=== PATIENT | male | born 1950 | race Asian ===

== ENCOUNTER → 2018-04-20 08:11 | Outpatient (REF) | payer MEDICARE, SELFPAY ==
[2018-04-20 14:28] LABS: ALT 46 U/L (12-78); AST 22 U/L (15-37); Albumin 3.9 g/dL (3.4-5.0); Alkaline Phosphatase 81 U/L (46-116); BUN 14 mg/dL (7-18); Bilirubin, Total 0.5 mg/dL (0.2-1.0); CREATININE 1.11 mg/dL (0.70-1.30); Calcium 9.1 mg/dL (8.5-10.1); Chloride 106 mmol/L (98-107); Cholesterol 158 mg/dL (50-200); Glucose 112 mg/dL (70-100); HDL Cholesterol 32 mg/dL (40-60); LDL CHOLESTEROL 107 mg/dL (<100); Sodium 141 mmol/L (136-145); Total Protein 7.4 g/dL (6.4-8.2); Triglyceride 157 mg/dL (30-150)
== END ==
LOC: NCHCN 08:11
PROVIDERS: PCP Nurse Practitioner Family; Visit Provider Nurse Practitioner Family
DX: I10 Essential (primary) hypertension (principal)
CPT/HCPCS: 80053; 80061; 83721

== ENCOUNTER 2018-09-24 09:48 | Outpatient (REF) | payer MEDICARE, SELFPAY ==
[2018-09-24 13:52] LABS: HCT 50.9 % (40.0-50.0); HGB 17.1 g/dL (13.5-17.5); Mean Corp. HGB Concentration 33.6 g/dL (32.0-36.0); Mean Corpuscular Hemoglobin 31.3 pg (27.0-33.0); Mean Corpuscular Volume 93.1 fL (80-95); Mean Platelet Volume 11.3 fL (8.0-11.0); Platelet Count 228 x1000/uL (130-400); RBC 5.47 m/cumm (4.50-6.00); RBC Distribution Width 14.6 % (11.8-14.1); White Blood Cell Count 6.47 k/cumm (4.4-10.8)
[2018-09-24 14:28] LABS: ALT 47 U/L (12-78); AST 26 U/L (15-37); Albumin 3.8 g/dL (3.4-5.0); Alkaline Phosphatase 73 U/L (46-116); Anion Gap 10.8 mmol/L (3-11); BUN 24 mg/dL (7-18); Bilirubin, Total 0.6 mg/dL (0.2-1.0); CO2 29.2 mmol/L (21.0-32.0); CREATININE 1.11 mg/dL (0.70-1.30); Calcium 9.2 mg/dL (8.5-10.1); Chloride 103 mmol/L (98-107); Cholesterol 180 mg/dL (50-200); Glucose 107 mg/dL (70-100); HDL Cholesterol 35 mg/dL (40-60); LDL CHOLESTEROL 123 mg/dL (<100); Potassium 4.2 mmol/L (3.5-5.1); Sodium 143 mmol/L (136-145); Total Protein 7.5 g/dL (6.4-8.2); Triglyceride 125 mg/dL (30-150)
== END 2018-09-24 10:08 ==
LOC: NCHCN 09:48
PROVIDERS: PCP Nurse Practitioner Family; Visit Provider Nurse Practitioner Family
DX: I10 Essential (primary) hypertension (principal); E78.5 Hyperlipidemia, unspecified; Z12.5 Encounter for screening for malignant neoplasm of prostate
CPT/HCPCS: 80053; 80061; 83721; 84153; 85027

== ENCOUNTER 2019-01-20 11:40 | Outpatient (REF) | payer MEDICARE, SELFPAY ==
[2019-01-20 12:52] LABS: Anion Gap 8.3 mmol/L (3-11); BUN 17 mg/dL (7-18); CO2 26.7 mmol/L (21.0-32.0); CREATININE 1.08 mg/dL (0.70-1.30); Chloride 103 mmol/L (98-107); Glucose 168 mg/dL (70-100); Potassium 3.8 mmol/L (3.5-5.1); Sodium 138 mmol/L (136-145)
== END 2019-01-20 12:00 ==
LOC: NCHCN 11:40
PROVIDERS: PCP Nurse Practitioner Family; Visit Provider Nurse Practitioner Family
DX: I10 Essential (primary) hypertension (principal)
CPT/HCPCS: 80048

== ENCOUNTER 2019-02-03 10:12 | Outpatient (REF) | payer MEDICARE, SELFPAY ==
[2019-02-03 19:00] LABS: Anion Gap 8.9 mmol/L (3-11); BUN 19 mg/dL (7-18); CO2 28.1 mmol/L (21.0-32.0); CREATININE 1.07 mg/dL (0.70-1.30); Calcium 9.2 mg/dL (8.5-10.1); Chloride 99 mmol/L (98-107); Glucose 185 mg/dL (70-100); Potassium 3.8 mmol/L (3.5-5.1); Sodium 136 mmol/L (136-145)
== END 2019-02-03 10:32 ==
LOC: NCHCN 10:12
PROVIDERS: PCP Nurse Practitioner Family; Visit Provider Nurse Practitioner Family
DX: E78.5 Hyperlipidemia, unspecified (principal); I10 Essential (primary) hypertension
CPT/HCPCS: 80048

== ENCOUNTER → 2019-03-07 13:38 | Outpatient (BNVA) | payer MEDICARE, SELFPAY | PROVIDERS: PCP Nurse Practitioner Family; Referring Provider Nurse Practitioner Family; Visit Provider Physical Therapy Assistant | DX: Z12.11 Encounter for screening for malignant neoplasm of colon (principal); J44.9 Chronic obstructive pulmonary disease, unspecified; I10 Essential (primary) hypertension ==

== ENCOUNTER 2019-04-05 00:44 | Emergency (ER) | payer MEDICARE, SELFPAY ==
[2019-04-05] VITALS (28 sets, daily range): BP systolic 88–118; BP diastolic 55–69; PULSE 62–79; RESP 7–17; TEMP 36.6; O2SAT 95–99
--- NOTE | 2019-04-05 00:57 | DI.CT_ITS ---
SYMPTOM/DIAGNOSIS: SYNCOPE CRANIAL CT: 04/[address] was performed. There is predominant opacification of maxillary ethmoid and right sphenoid sinuses. Mastoid air cells are clear. The orbital and temporal bone structures appear intact. Some calcification noted in internal carotid and middle cerebral arteries bilaterally. Ventricular system is normal in appearance. No evidence of acute intracranial hemorrhage, mass effect or midline shift. CONCLUSION: No evidence of acute intracranial process. Findings consistent with chronic sandra sinusitis.
--- NOTE | 2019-04-05 00:57 | DI.RAD_ITS ---
SYMPTOM/DIAGNOSIS: SYNCOPE PA AND LATERAL CHEST: 04/05 The heart is not enlarged. The lungs are predominantly clear with question minimal calcific scarring in left upper lobe which may represent healed granulomatous disease. No pleural effusion seen. CONCLUSION: No evidence of acute process.
--- NOTE | 2019-04-05 00:59 | ED.GENADUL_ITS ---
Discharge Plan Discharge Details Chief Complaint: Dizzy/Sync Primary Care Provider: Jennifer Benson ED Provider: Arnoldo Gaines Home Meds and New Rx's Prescriptions: No Action polyethylene glycol 3350 17 gram/dose powder 238 g PO ONCE Qty: 238 RF: 0 bisacodyl [Dulcolax (bisacodyl)] 5 mg tablet,delayed release (DR/EC) 5 mg PO ONCE Qty: 4 RF: 0 hydrochlorothiazide 50 mg tablet 50 mg PO DAILY RF: 0 cyclobenzaprine 10 mg tablet 10 mg PO HS RF: 0 triamcinolone acetonide 0.1 % cream 1 applic TP BID RF: 0 simvastatin [Zocor] 20 mg tablet 20 mg PO QHS RF: 0 lisinopril 20 mg tablet 20 mg PO DAILY RF: 0 aspirin [Aspir-81] 81 mg Tablet,Delayed Release (Dr/Ec) 81 mg PO DAILY RF: 0 Medical Decision Making 68-year-old male who completed bowel prep earlier today for colonoscopy tomorrow with resultant 6-7 large, watery loose stools. Then be felt weak and lightheaded in the bathroom, had a syncopal event without seizure or chest pain. Arrives to the blood pressure 88/64, dehydrated in appearance, but otherwise well-appearing. He is in a normal sinus rhythm on EKG. Likely hypovolemia, differential diagnosis would include electrolyte abnormality, must exclude cardiogenic syncope. Patient IV access established, patient given fluid bolus. Referred for diagnostic studies. Patient appears hypovolemic and hemoconcentrated with a hemoglobin 18, hematocrit 53, creatinine 1.5. His troponin is unremarkable, the remainder of chemistries reassuring. CT scan of the head and chest x-ray are unremarkable. He is improved following fluid resuscitation with correction of blood pressure. Consistent with hypovolemic near syncope secondary to his bowel prep. He is stable and improved. Appropriate discharged home and may continue with plan colonoscopy as a feel there are no contraindications at this time. ECG Data Attestation: I personally reviewed and interpreted this ECG (s) as follows: Interpretation: Normal sinus rhythm with a rate of 65, the QRS is narrow, no ST segment change HPI General Mode of arrival: ambulatory . Date/Time Provider Initiated Documentation: 04/05/19 00:49 . Limitations to Documentation: no limitations . Information obtained by: patient . History of Present Illness 68 year old M pr esents to the emergency department with the chief complaint of Syncope after bowel prep, described as moderate, Quality is described as constant, Patient reports no radiation. and it has been now resolved. No relieving factors improve symptom(s), No exacerbating factors reported . Patient notes no other symptoms.; denies chest pain. Patient did receive the following treatments prior to arrival, none Related Data Home Medications Medication Instructions Recorded Confirmed cyclobenzaprine 10 mg tablet 10 mg PO HS 02/22/19 03/07/19 hydrochlorothiazide 50 mg tablet 50 mg PO DAILY 02/22/19 04/04/19 lisinopril 20 mg tablet 20 mg PO DAILY 02/22/19 04/04/19 simvastatin 20 mg tablet 20 mg PO QHS 02/22/19 04/04/19 triamcinolone acetonide 0.1 % 1 applic TP BID 02/22/19 03/07/19 topical cream bisacodyl 5 mg tablet,delayed 5 mg PO ONCE #4 tab 03/07/19 03/07/19 release polyethylene glycol 3350 17 238 g PO ONCE #238 gm 03/07/19 03/07/19 gram/dose oral powder aspirin [Aspir-81] 81 mg PO DAILY 04/01/19 04/04/19 Previous Rx's Medication Instructions Recorded bisacodyl 5 mg tablet,delayed 5 mg PO ONCE #4 tab 03/07/19 release polyethylene glycol 3350 17 238 g PO ONCE #238 gm 03/07/19 gram/dose oral powder Allergies Allergy/AdvReac Type Severity Reaction Status Date / Time No Known Allergies Allergy Verified 04/04/19 12:14 General Stated Complaint: Dizzy/Sync RAÚL: 2 Review of Systems Review of Systems No chest pain. 6-7 loose watery stools at home. [place] weakness and lightheadedness. 6 systems reviewed and otherwise negative [facility] Medical History Abnormal EKG (Chronic) Atopic dermatitis (Chronic) COPD (chronic obstructive pulmonary disease) (Chronic) Deviated septum (Chronic) Hyperlipidemia (Chronic) Hypertension (Chronic) Microscopic hematuria (Chronic) Tobacco abuse (Chronic) Warthin's tumor (Chronic) Social History Smoking/Tobacco Use Status: Current every day Tobacco Type: cigarettes Drug use: Never Do you feel safe at home: Yes Do you feel safe in your relationship?: Yes Exam Narrative Exam Narrative: GEN: awake, alert, oriented 3. Pleasant, well groomed, interactive. HEAD: Normocephalic, atraumatic ENT: Mucous membranes dry, oropharynx unremarkable, External ear exam unremarkable EYES: PERRL, EOMI NECK: Full ROM, no NITZA, no menigismus CHEST/RESP: Nontender, clear to auscultation bilateral, no wheeze/rhonchi/rales CARDIOVASCULAR: RRR, no murmur, rub jose. 2+ Rad pulse bilateral ABDOMEN: Soft, nontender, no mass. +Bowel sounds EXT: Full ROM, no edema, no rash Neuro: Grossly normal neurologic exam, conversant, interactive. Psych: Speech fluent, thoughts congruent, affect normal Course Vital Signs Temperature 36.6 C 04/05/19 00:53 Pulse 64 04/05/19 00:53 Respiratory Rate 12 04/05/19 00:53 Blood Pressure 88/64 L 04/05/19 00:53 Pulse Oximetry 97 04/05/19 00:53 Temperature 36.6 C 04/05/19 00:53 Temperature Source Skin 04/05/19 00:53 Pulse 64 04/05/19 00:53 Respiratory Rate 12 04/05/19 00:53 Blood Pressure 88/64 L 04/05/19 00:53 Blood Pressure Position Sitting 04/05/19 00:53 Pulse Oximetry 97 04/05/19 00:53
[2019-04-05 01:12] LABS: Abs Immature Grans 0.02 k/cumm (0.0-0.09); Absolute Basophil Count 0.04 k/cumm (0.0-0.2); Absolute Eosinophil Count 0.46 k/cumm (0.0-0.7); Absolute Monocyte Count 0.73 k/cumm (0.11-0.7); Absolute Neutrophil Count 5.67 k/cumm (1.2-6.7); Basophils % 0.4; Eosinophils % 4.2; HCT 53.5 % (40.0-50.0); HGB 18.3 g/dL (13.5-17.5); Immature Grans % 0.2; Lymphocytes % 36.6; Mean Corp. HGB Concentration 34.2 g/dL (32.0-36.0); Mean Corpuscular Hemoglobin 31.2 pg (27.0-33.0); Mean Corpuscular Volume 91.1 fL (80-95); Mean Platelet Volume 9.7 fL (8.0-11.0); Monocytes % 6.7; Neutrophils % 51.9; Platelet Count 226 x1000/uL (130-400); RBC 5.87 m/cumm (4.50-6.00); RBC Distribution Width 14.6 % (11.8-14.1); White Blood Cell Count 10.92 k/cumm (4.4-10.8)
[2019-04-05] MEDS: Normal Saline 1,000 ML 1000 ML IV ×2 (01:21→01:22)
[2019-04-05 01:29] LABS: ALT 44 U/L (12-78); AST 16 U/L (15-37); Albumin 4.3 g/dL (3.4-5.0); Alkaline Phosphatase 73 U/L (46-116); Anion Gap 9.3 mmol/L (3-11); BUN 14 mg/dL (7-18); Bilirubin, Total 0.5 mg/dL (0.2-1.0); CO2 28.7 mmol/L (21.0-32.0); CREATININE 1.51 mg/dL (0.70-1.30); Calcium 9.4 mg/dL (8.5-10.1); Chloride 102 mmol/L (98-107); Estimated GFR 46.47 (mL/min/1.73m2); Glucose 112 mg/dL (70-100); Magnesium 1.9 mg/dL (1.8-2.4); Potassium 3.8 mmol/L (3.5-5.1); Sodium 140 mmol/L (136-145); Total Protein 8.7 g/dL (6.4-8.2)
[2019-04-05 01:30] LABS: Troponin I < 0.05 ng/mL (0.00-0.06)
--- NOTE | 2019-04-05 01:57 | DI.VRAD_ITS ---
EXAM: XR Chest, 2 Views EXAM DATE/TIME: 04/05/2019 1:42 AM CLINICAL HISTORY: 68 years old, male; Other: Syncope TECHNIQUE: Imaging protocol: XR of the chest, 2 views. COMPARISON: No relevant prior studies available. FINDINGS: Lungs: Unremarkable. No consolidation. Pleural space: Unremarkable. No pleural effusion. No pneumothorax. Heart/Mediastinum: Aortic atherosclerosis. No cardiomegaly. Bones/joints: Chronic osseous changes. IMPRESSION: No acute cardiopulmonary findings. Dictated and Authenticated by: Ba Gardner MD. Ordering:NAT Mclaughlin MD
--- NOTE | 2019-04-05 02:02 | DI.VRAD_ITS ---
EXAM: CT Head Without Contrast EXAM DATE/TIME: 04/05/2019 1:41 AM CLINICAL HISTORY: 68 years old, male; Syncope and collapse TECHNIQUE: Imaging protocol: Computed tomography images of the head without contrast. Coronal and sagittal reformatted images were created and reviewed. COMPARISON: No relevant prior studies available. FINDINGS: Brain: Normal. No hemorrhage. Unremarkable white matter. No mass effect. Ventricles: Normal. No ventriculomegaly. Bones/joints: Unremarkable. No acute fracture. Sinuses: Diffuse mucosal thickening and sinus opacification of paranasal sinuses Mastoid air cells: Visualized mastoid air cells are well aerated. No mastoid effusion. Soft tissues: Unremarkable. IMPRESSION: 1. No acute intracranial findings. 2. Sinus inflammatory disease. Dictated and Authenticated by: Ba Gardner MD. Ordering:NAT Mclaughlin MD
== END 2019-04-05 03:21 | disposition home or self-care (01) ==
LOC: ER 03:16
PROVIDERS: Emergency Provider Emergency Medicine; PCP Nurse Practitioner Family
DX: E86.1 Hypovolemia (principal); I95.9 Hypotension, unspecified; R55 Syncope and collapse; T47.2X5A Adverse effect of stimulant laxatives, initial encounter; J44.9 Chronic obstructive pulmonary disease, unspecified; F17.210 Nicotine dependence, cigarettes, uncomplicated; I10 Essential (primary) hypertension
CPT/HCPCS: 45385; 45380; 36415; 80053; 88305; 93005; 96360; 99285; 70450; 71046; 83735; 84484; 85025; 93010; 99284

== ENCOUNTER 2019-04-05 08:53 | Day surgery (SDC) | payer MEDICARE, SELFPAY ==
--- NOTE | 2019-04-05 06:52 | W.COLOREPORT ---
Date of service: 04/05/19 Time of Service: 12:46 Colonoscopy Report Date of procedure: 04/05/19 Pre-op diagnosis general: Colon Cancer Screening Post-op diagnosis procedure note: other (Multiple Colorectal polyps) Procedure: Colonoscopy with polypectomy Surgeon: Louann Dow Anesthesia proc note operative: other (General/ ASA 2/Divina Ramirez CRNA) Estimated blood loss (mL): 5 Pathology: other (15 polyps) Complications: None Disposition: same day Indications: Mr. Mendoza is a pleasant 68 year old male seen in the office for a colonoscopy. His last Colonoscopy was in 2007 and was unremarkable. Risks, benefits and complications have been reviewed. Complications include but are not limited to bleeding, pain, perforation, missed small lesion/polyp, sore throat, aspiration and adverse reaction to the medications. Questions were entertained and answered to their satisfaction and they wished to proceed. No guarantees were given or implied. Prep: Miralax/Dulcolax Procedure Start Time: 12:46 Procedure End Time: 13:39 Retraction Time: 46 minutes Findings: 15 polyps, most of them sessile ranging from <1 cm to 1 cm 3 pedunculated polyps in the sigmoid colon at 20 cm Procedure Description: After informed consent was obtained the patient was taken to the procedure room and placed in a left decubitous position. Monitors were applied and a time out was done. The patients name, date of , procedure, allergies to medications and metal in their body was reviewed. The patient was then sedated. Once sedated and comfortable a rectal exam was done. External exam was normal. Internal exam revealed a normal sphincter tone and no palpable masses. The prostate is smooth. The scope was then introduced and retro-flexed. No internal hemorrhoids were identified. The scope was then advanced to the cecum without difficulty. The TI and appendiceal orifice were identified. The prep was adequate. The scope was then slowly retracted over 46 minutes minutes back into the rectum. Polyps were removed with cold forceps in the transverse colon, descending colon x2, and sigmoid colon x 9. Polyps were removed with a hot snare in the sigmoid colon at 20 cm x 3. The scope was removed and the patient was woken up and taken back to Same day surgery in stable condition. The patient tolerated the procedure well and there were no immediate complications. Follow up: The patient should follow up in 1-2 years unless they develop changes in bowel habits or other new gastrointestinal complaints.
--- NOTE | 2019-04-05 06:54 | W.PM.DSUDISC ---
Discharge Plan Disposition Patient Disposition: HOME Condition: Good Discharge Details Reason For Visit: Colon Cancer Screening Attending Provider: Louann Dow Primary Care Provider: Simone Harley Home Meds and New Rx's Prescriptions: Continued hydrochlorothiazide 50 mg tablet 50 mg PO DAILY RF: 0 cyclobenzaprine 10 mg tablet 10 mg PO HS RF: 0 triamcinolone acetonide 0.1 % cream 1 applic TP BID RF: 0 simvastatin [Zocor] 20 mg tablet 20 mg PO QHS RF: 0 lisinopril 20 mg tablet 20 mg PO DAILY RF: 0 aspirin [Aspir-81] 81 mg Tablet,Delayed Release (Dr/Ec) 81 mg PO DAILY RF: 0 Discontinued polyethylene glycol 3350 17 gram/dose powder 238 g PO ONCE Qty: 238 RF: 0 bisacodyl [Dulcolax (bisacodyl)] 5 mg tablet,delayed release (DR/EC) 5 mg PO ONCE Qty: 4 RF: 0 Discharge Instructions Instructions: Colonoscopy (GEN), Colorectal Polyps (GEN) Additional Instructions: Findings: 15 polyps Follow up: 1-2 years Please call if you develop: fevers >101.5 Nausea or Vomiting Abdominal pain that is not transient DAY SURGERY UNIT POST COLONOSCOPY INSTRUCTIONS 1. Because there will be medication in your system for the next 24 hours, you may feel a little sleepy. Your coordination will be affected. Therefore: a. Do not drive or operate dangerous equipment for 24 hours. b. Do not drink alcohol beverages for 24 hours (not even beer). c. Plan to go home and rest for the day. 2. Generally there are no restrictions on your activity after a day or so has gone by, but you may feel a bit fatigued for a few days. 3 After you arrive home you may have a light meal and return to a normal diet as you can tolerate it without feeling sick to your stomach. 4. After surgery, you may feel pain or discomfort. This should be only transient, but if it persists please contact your doctor. 5. If there are any questions regarding the findings of your procedure, please feel free to contact your doctor. 6. If you are unable to contact your doctor with a problem, contact the hospital at [phone]. 7. Continue all your regular medications unless directed otherwise. I understand the above instructions and have no questions. Signature of Patient or Responsible Adult Escort Date/Time Name of Responsible Adult Escort Signature of Nurse Date/Time Activity:: Activity as Tolerated Diet:: As Tolerated Discharge Orders Discharge Orders: Discharge Order (Routine); Ordered 04/05/19 Ordered By: Louann Dow DS: Diagnosis Discharge Diagnosis (1) S/P colonoscopy: (2) Colorectal polyps:
[2019-04-05] MEDS: Lactated Ringers 1,000 ML 80 ML IV ×2 (09:25→13:14)
[2019-04-05 09:44] VITALS: BP 119/62; PULSE 64; RESP 16; TEMP 36.8; O2SAT 98
--- NOTE | 2019-04-05 13:02 | BOWEL_PTH ---
PATIENT: Angel Mendoza LOC: [facility] U#:[id number] AGE/SX: 68/M ROOM: RE04/05/[address]: Louann Dow MD : 1950 BED: DIS: 04/05/2019 SPEC #: [id number] RECD: 04/05/19 17:07 STATUS: [facility] #: [id number] SAQIB: 04/05/19 13:[address]: Louann Dow DEPT: Surgical Specimen RECD BY: Shaunna Holt ENTERED: 04/05/19 17:09 SP TYPE: Bowel OTHR DR: Simone Harley Tissues: 1 - BIOPSY BOWEL 2 - BIOPSY BOWEL 3 - BIOPSY BOWEL 4 - BIOPSY BOWEL 5 - BIOPSY BOWEL Procedures: GROSS AND MICRO LEVEL 4 Comments: [id number]
[2019-04-05 14:19] VITALS: BP 125/71; PULSE 63; RESP 14; TEMP 36.7; O2SAT 98
== END 2019-04-05 14:45 | disposition home or self-care (01) ==
PROVIDERS: PCP Nurse Practitioner Family; Visit Provider Surgery
PROC: 0DJD8ZZ Inspection of Lower Intestinal Tract, Via Natural or Artificial Opening Endoscopic (ICD-10-PCS; CPT 45378; principal; 2019-04-05 10:45)
DX: Z12.11 Encounter for screening for malignant neoplasm of colon (principal); D12.3 Benign neoplasm of transverse colon; D12.4 Benign neoplasm of descending colon; K63.5 Polyp of colon; D12.5 Benign neoplasm of sigmoid colon; J44.9 Chronic obstructive pulmonary disease, unspecified; I10 Essential (primary) hypertension; F17.210 Nicotine dependence, cigarettes, uncomplicated
CPT/HCPCS: 45385; 45380; 88305

== ENCOUNTER 2019-05-05 15:18 | Outpatient (REF) | payer MEDICARE, SELFPAY ==
[2019-05-05 19:32] LABS: Bacteria Rare HPF (Negative); C & S Indicated? No; Casts Negative LPF (Negative); Crystals Negative HPF (Negative); Epithelial Cells Negative HPF (Negative); Mucus Negative (Negative); Other Cells Negative (Negative); RBC 0-2 (0-2); WBC 0-2 HPF (0-5)
== END 2019-05-05 15:38 ==
LOC: NCHCN 15:18
PROVIDERS: PCP Nurse Practitioner Family; Visit Provider Nurse Practitioner Family
DX: R73.09 Other abnormal glucose (principal)
CPT/HCPCS: 81015

== ENCOUNTER 2019-08-18 14:39 | Outpatient (REF) | payer MEDICARE, SELFPAY ==
[2019-08-18 19:01] LABS: COMMENT (LAB VIEW ONLY) 55.82 mg/dL
[2019-08-18 19:48] LABS: COMMENT (LAB VIEW ONLY) 55.57 mg/dL; PROTEIN 10.5 mg/dL; Prot/Crea Ur Ratio 0.18
== END 2019-08-18 14:59 ==
LOC: NCHCN 14:39
PROVIDERS: PCP Nurse Practitioner Family; Visit Provider Nurse Practitioner Family
DX: R73.03 Prediabetes (principal); I10 Essential (primary) hypertension
CPT/HCPCS: 82043; 82565; 82570; 84156

== ENCOUNTER 2019-09-20 00:58 | Outpatient (CLI) | payer MEDICARE, SELFPAY ==
--- NOTE | 2019-09-20 09:21 | DI.CTLCSR_ITS ---
EXAM: CT CHEST LUNG CANCER SCREEN CLINICAL HISTORY: CIGARETTE SMOKER F17.210 TECHNIQUE: Low dose noncontrast. COMPARISON: CHEST WITH CONTRAST from 12/28/2012 XR CHEST 2V PA LATERAL from 04/05/2019 FINDINGS: Calcifications and scarring are again noted in the left upper lobe. There is a stable 3 millimeter n odule in the posteromedial left lower lobe. There is an area of scarring in the right posterior lowe r lobe. There is mild right lower lobe bronchiectasis and mucous plugging. There is a rounded area of nodularity adjacent to the area of scarring in the right lobe, likely representing rounded atelect asis IMPRESSION: Lung rads category 2, negative with benign findings. Annual low-dose screening CT is recommended.
== END 2019-09-20 01:18 ==
PROVIDERS: PCP Nurse Practitioner Family; Visit Provider Nurse Practitioner Family
DX: Z12.2 Encounter for screening for malignant neoplasm of respiratory organs (principal); F17.210 Nicotine dependence, cigarettes, uncomplicated; R91.1 Solitary pulmonary nodule; J47.9 Bronchiectasis, uncomplicated
CPT/HCPCS: G0297

== ENCOUNTER 2020-06-29 16:11 | Outpatient (REF) | payer MEDICARE, SELFPAY ==
[2020-06-29 19:52] LABS: HCT 51.2 % (40.0-50.0); MCH 31.3 pg (27.0-33.0); MCHC 33.2 % (32.0-36.0); MCV 94.3 fL (80-95); MPV 10.9 fL (8.0-11.0); Platelet Count 251 10^3/uL (130-400); RBC 5.43 10^6/uL (4.36-5.78); RDW 13.3 % (11.8-14.1); RDW-SD 46.4 fL; WBC 8.78 10^3/uL (4.4-10.8)
[2020-06-29 20:14] LABS: ALT 44 U/L (16-63); AST 19 U/L (15-37); Alkaline Phosphatase 70 U/L (46-116); Anion Gap 5.9 mmol/L (3-11); BUN 15 mg/dL (7-18); Bilirubin, Total 0.2 mg/dL (0.2-1.0); CO2 28.1 mmol/L (21.0-32.0); Calculated LDL 94 mg/dL (<100); Chloride 102 mmol/L (98-107); Cholesterol 153 mg/dL (<200); Glucose 95 mg/dL (74-106); HDL Cholesterol 32 mg/dL (40-60); Potassium 3.7 mmol/L (3.5-5.1); Sodium 136 mmol/L (136-145); Total Protein 7.6 g/dL (6.4-8.2); Triglyceride 138 mg/dL (<150)
[2020-07-03 12:49] LABS: HIV-1/2 Ag & Ab Screen Negative (Negative)
[2020-07-10 12:59] LABS: Hepatitis C Ab w Rflx HCV PCR Negative (Negative)
== END 2020-06-29 16:31 ==
LOC: NCHCN 16:11
PROVIDERS: PCP Nurse Practitioner Family; Visit Provider Nurse Practitioner Family
DX: E78.5 Hyperlipidemia, unspecified (principal); R73.03 Prediabetes; I10 Essential (primary) hypertension
CPT/HCPCS: 80053; 80061; 85027; 86803; 87389

== ENCOUNTER → 2020-09-13 13:13 | Outpatient (BNVA) | payer MEDICARE, SELFPAY | PROVIDERS: PCP Nurse Practitioner Family; Referring Provider Nurse Practitioner Family; Visit Provider Physical Therapy Assistant | DX: Z12.11 Encounter for screening for malignant neoplasm of colon (principal); Z86.010 Personal history of colon polyps ==

== ENCOUNTER 2020-09-20 02:37 | Outpatient (CLI) | payer MEDICARE, SELFPAY ==
[2020-09-21 13:40] LABS: COVID-19 RT-PCR UVMMC Result Negative (Negative)
== END 2020-09-20 02:57 ==
PROVIDERS: PCP Nurse Practitioner Family; Visit Provider Surgery
DX: Z11.52 Encounter for screening for COVID-19 (principal); Z01.818 Encounter for other preprocedural examination
CPT/HCPCS: U0003

== ENCOUNTER → 2020-09-24 08:43 | Outpatient (BNVA) | payer MEDICARE, SELFPAY | PROVIDERS: PCP Nurse Practitioner Family; Referring Provider Nurse Practitioner Family; Visit Provider Surgery | DX: R69 Illness, unspecified (principal) ==

== ENCOUNTER 2020-09-24 09:47 | Day surgery (SDC) | payer MEDICARE, SELFPAY ==
--- NOTE | 2020-09-24 06:54 | W.COLOREPORT ---
Date of service: 09/24/20 Time of Service: 11:04 Colonoscopy Report Date of procedure: 09/24/20 Pre-op diagnosis general: Hx of polyps Post-op diagnosis procedure note: same (24 polyps) Procedure: Colonoscopy with polypectomy by forceps Surgeon: Louann Dow Anesthesia proc note operative: other (General/ASA 2/HORACE Frias) Estimated blood loss (mL): 5 Pathology: other (3 Transverse polyps, 18 sigmoid polyps and 3 rectal polyps) Complications: None Disposition: same day Indications: The patient is here for Colonoscopy pre-op. His last screening was in 2019 and was remarkable for hyperplastic polyps x 9. He has no family history of colon cancer. He has not had any bowel habit changes. -Discussed colonoscopy bowel prep as well as the procedure. Discussed possible complications of the procedure to include bleeding, pain, perforation, missed small lesion/polyp, sore throat, aspiration and adverse reaction to the medications. Questions were answered to patient?s satisfaction. No guarantees were implied or given. Prep: Miralax/Dulcolax Procedure Start Time: 11:04 Procedure End Time: 11:45 Retraction Time: 35 minutes Findings: multiple benign appearing polyps Procedure Description: After informed consent was obtained the patient was taken to the procedure room and placed in a left decubitous position. Monitors were applied and a time out was done. The patients name, date of , procedure, allergies to medications and metal in their body was reviewed. The patient was then sedated. Once sedated and comfortable a rectal exam was done. External exam was normal. Internal exam revealed a normal sphincter tone and no palpable masses. The prostate felt smooth. The scope was then introduced and retro-flexed. No internal hemorrhoids, polyps or masses were identified on retro-flexion. The scope was then advanced to the cecum without difficulty. The ileocecal vlave and appendiceal orifice were identified. The prep was good. The scope was then slowly retracted over 35 minutes back into the rectum. Polyps were removed with cold forceps in the transverse colon x3, sigmoid colon x18 and rectum x3. There was no diverticulosis noted. The scope was removed and the patient was woken up and taken back to Same day surgery in stable condition. The patient tolerated the procedure well and there were no immediate complications. Follow up: The patient should follow up in 3 years unless they develop changes in bowel habits or other new gastrointestinal complaints.
--- NOTE | 2020-09-24 06:54 | W.PM.DSUDISC ---
Discharge Plan Disposition Patient Disposition: HOME Condition: Good Discharge Details Reason For Visit: Colonoscopy Attending Provider: Louann Dow Primary Care Provider: Simone Harley Home Meds and New Rx's Prescriptions: Continued hydrochlorothiazide 50 mg tablet 50 mg PO DAILY RF: 0 simvastatin [Zocor] 20 mg tablet 20 mg PO QHS RF: 0 lisinopril 20 mg tablet 20 mg PO DAILY RF: 0 aspirin [Aspir-81] 81 mg Tablet,Delayed Release (Dr/Ec) 81 mg PO DAILY RF: 0 Discharge Instructions Additional Instructions: Findings: 24 small benign appearing polyps Follow up: 3 years Please call if you develop: fevers >101.5 Nausea or Vomiting Abdominal pain that is not transient DAY SURGERY UNIT POST ENDOSCOPY INSTRUCTIONS 1. Because there will be medication in your system for the next 24 hours, you may feel a little sleepy. Your coordination will be affected. Therefore: a. Do not drive or operate dangerous equipment for 24 hours. b. Do not drink alcohol beverages for 24 hours (not even beer). c. Plan to go home and rest for the day. 2. Generally there are no restrictions on your activity after a day or so has gone by, but you may feel a bit fatigued for a few days. 3 After you arrive home you may have a light meal and return to a normal diet as you can tolerate it without feeling sick to your stomach. 4. After surgery, you may feel pain or discomfort. This should be only transient, but if it persists please contact your doctor. 5. If there are any questions regarding the findings of your procedure, please feel free to contact your doctor. 6. If you are unable to contact your doctor with a problem, contact the hospital at [phone]. 7. Continue all your regular medications unless directed otherwise. I understand the above instructions and have no questions. Signature of Patient or Responsible Adult Escort Date/Time Name of Responsible Adult Escort Signature of Nurse Date/Time Activity:: Activity as Tolerated Activity:: Activity as Tolerated Diet:: As Tolerated Discharge Orders Discharge Orders: Discharge Order (Routine); Ordered 09/24/20 Ordered By: Louann oDw
[2020-09-24 10:10] VITALS: BP 130/80; PULSE 86; RESP 16; TEMP 37.2; O2SAT 97
[2020-09-24] MEDS: Lactated Ringers 1,000 ML 80 ML IV (10:32)
--- NOTE | 2020-09-24 11:45 | BOWEL_PTH ---
PATIENT: Angel Mendoza LOC: [facility] U#:[id number] AGE/SX: 70/M ROOM: RE09/24/[address]: Louann Dow MD : 1950 BED: DIS: 09/24/2020 SPEC #: [id number] RECD: 09/24/20 13:10 STATUS: [facility] RE #: [id number] SAQIB: 09/24/20 11:[address]: Louann Dow DEPT: Surgical Specimen RECD BY: Shaunna Holt ENTERED: 09/24/20 13:12 SP TYPE: Bowel OTHR DR: Simone Harley Tissues: 1 - BIOPSY BOWEL 2 - BIOPSY BOWEL 3 - BIOPSY BOWEL Procedures: GROSS AND MICRO LEVEL 4 Comments: [id number]
[2020-09-24 12:34] VITALS: BP 119/73; PULSE 60; RESP 16; TEMP 36.6; O2SAT 97
== END 2020-09-24 12:55 | disposition home or self-care (01) ==
LOC: SURG 09-25 10:10
PROVIDERS: PCP Nurse Practitioner Family; Visit Provider Surgery
PROC: 0DJD8ZZ Inspection of Lower Intestinal Tract, Via Natural or Artificial Opening Endoscopic (ICD-10-PCS; CPT 45378; principal; 2020-09-24 11:30)
DX: Z12.11 Encounter for screening for malignant neoplasm of colon (principal); Z87.19 Personal history of other diseases of the digestive system; D12.4 Benign neoplasm of descending colon; K62.1 Rectal polyp; K63.5 Polyp of colon
CPT/HCPCS: 45380; 88305

== ENCOUNTER 2021-08-02 09:50 | Outpatient (REF) | payer MEDICARE, SELFPAY ==
[2021-08-02 14:07] LABS: HCT 50.7 % (40.0-50.0); HGB 16.8 g/dL (13.5-17.5); MCH 30.8 pg (27.0-33.0); MCHC 33.1 % (32.0-36.0); MPV 10.9 fL (8.0-11.0); Platelet Count 222 10^3/uL (130-400); RBC 5.45 10^6/uL (4.36-5.78); RDW 13.8 % (11.8-14.1); RDW-SD 47.5 fL; WBC 7.98 10^3/uL (4.4-10.8)
[2021-08-02 15:13] LABS: ALT 66 U/L (16-63); AST 25 U/L (15-37); Albumin 3.8 g/dL (3.4-5.0); Alkaline Phosphatase 79 U/L (46-116); Anion Gap 9.8 mmol/L (3-11); BUN 22 mg/dL (7-18); Bilirubin, Total 0.4 mg/dL (0.2-1.0); CO2 29.2 mmol/L (21.0-32.0); CREATININE 1.2 mg/dL (0.70-1.30); Calcium 8.9 mg/dL (8.5-10.1); Calculated LDL 106 mg/dL (<100); Chloride 101 mmol/L (98-107); Cholesterol 165 mg/dL (<200); Glucose 110 mg/dL (74-106); HDL Cholesterol 40 mg/dL (40-60); Potassium 3.7 mmol/L (3.5-5.1); Sodium 140 mmol/L (136-145); Total Protein 7.3 g/dL (6.4-8.2); Triglyceride 95 mg/dL (<150)
== END 2021-08-02 09:51 | disposition home or self-care (01) ==
LOC: NCHCN 09:50
PROVIDERS: PCP Nurse Practitioner Family; Visit Provider Nurse Practitioner Family
DX: E78.5 Hyperlipidemia, unspecified (principal); R73.03 Prediabetes; I10 Essential (primary) hypertension
CPT/HCPCS: 80053; 80061; 85027

== ENCOUNTER 2021-08-19 03:00 | Outpatient (CLI) | payer MEDICARE, SELFPAY ==
--- NOTE | 2021-08-19 13:45 | DI.CTLCSR_ITS ---
Exam(s) CT CHEST LUNG CANCER SCREEN EXAM: CT CHEST LUNG CANCER SCREEN CLINICAL HISTORY: CIGARETTE SMOKER, F17.210,screening for lung ca. TECHNIQUE: Imaging Protocol: Low Dose Technique CONTRAST MATERIAL: None COMPARISON: CT CT CHEST LUNG CANCER SCREEN from 09/20/2019 FINDINGS: CHEST: LUNGS: Left upper lobe there is an independent calcified granuloma and again noted is an area of part ially calcified scarring the left upper lobe which remains unchanged.. Atelectasis or scarring in le ft lower lobe posterior basal segment has slightly increased but remains benign appearance. Scarring in right lower lobe again noted. Pleural based infiltrate in the posterior basal segment of the rig ht lower lobe has decreased in amount. There are no pleural effusions on either side. No new findin gs in the trachea and mainstem bronchi. MEDIASTINUM: There is no obvious hilar nor mediastinal adenopathy. CARDIAC: Heart size is normal. There is no pericardial effusion.Caliber of the thoracic aorta is wit hin normal limits. OTHER: OSSEOUS: No significant osseous lesions.. IMPRESSION: 1. Relatively stable benign findings. No new concerning findings. 2. No pleural effusions. No intrathoracic adenopathy 3. Lung RADS Cat 2 - Benign Appearance / Behavior: Nodules with a very low likelihood of becoming a c linically active cancer due to size or lack of growth Lung-RADS 1.0 CATEGORIES: Category 0 - Prior chest CT exam(s) being located for comparison. Category 1 - Annual screening in 12 months. No nodules or definitely benign nodules. Category 2 - Annual screening in 12 months. Benign appearance. Nodules with low likelihood of becomin g active cancer. Category 3 - 6-month follow-up. Probably benign. Short-term follow-up suggested. Nodules with low lik elihood of becoming active cancer. Category 4A - 3-month follow-up and CT/PET if >8 mm in size. Suspicious finding. Findings which requi re additional testing. Category 4B - Findings which require additional testing and tissue sampling. Modifier S- Potentially clinically significant findings (non lung cancer) RADIATION DOSE DELIVERED: 75.13mGy.cm Total DLP 1.84mGy CTDIvol DATA REPOSITORY: All CT scans at this facility are submitted to the National Radiology Data Registry (NRDR) Dose Index Registry (DIR) with the [employer] (A[employer]). RADIATION OPTIMIZATION: All CT scans at this facility use at least one of these dose optimization te kaleb: automated exposure control; mA and/or kV adjustment per patient size (includes targeted exa ms where dose is matched to clinical indication); or iterative reconstruction.
== END 2021-08-19 03:20 ==
PROVIDERS: PCP Nurse Practitioner Family; Visit Provider Nurse Practitioner Family
DX: F17.210 Nicotine dependence, cigarettes, uncomplicated (principal); Z12.2 Encounter for screening for malignant neoplasm of respiratory organs
CPT/HCPCS: 71271

== ENCOUNTER 2022-01-27 16:38 | Outpatient (REF) | payer MEDICARE, SELFPAY ==
[2022-01-27 16:17] LABS: ALT 32 U/L (16-63); AST 20 U/L (15-37); Albumin 4.2 g/dL (3.4-5.0); Alkaline Phosphatase 74 U/L (46-116); Anion Gap 10.8 mmol/L (3-11); BUN 18 mg/dL (7-18); Bilirubin, Total 0.5 mg/dL (0.2-1.0); CO2 29.2 mmol/L (21.0-32.0); CREATININE 0.9 mg/dL (0.70-1.30); Calcium 9.3 mg/dL (8.5-10.1); Chloride 102 mmol/L (98-107); Glucose 83 mg/dL (74-106); Potassium 3.8 mmol/L (3.5-5.1); Sodium 142 mmol/L (136-145); Total Protein 7.8 g/dL (6.4-8.2)
== END 2022-01-27 16:39 | disposition home or self-care (01) ==
LOC: NCHCN 16:38
PROVIDERS: PCP Nurse Practitioner Family; Visit Provider Nurse Practitioner Family
DX: R73.03 Prediabetes (principal); R79.89 Other specified abnormal findings of blood chemistry
CPT/HCPCS: 80053; 83036

== ENCOUNTER 2022-08-06 14:33 | Outpatient (REF) | payer MEDICARE, OTHER, SELFPAY ==
[2022-08-06 21:28] LABS: Calculated LDL 75 mg/dL (<100); Cholesterol 152 mg/dL (<200); HDL Cholesterol 37 mg/dL (40-60); Triglyceride 204 mg/dL (<150)
[2022-08-07 19:47] LABS: PSA, Screening 5.6 ng/mL (<=6.5)
== END 2022-08-06 14:34 | disposition home or self-care (01) ==
LOC: NCHCN 14:33
PROVIDERS: Visit Provider Nurse Practitioner Family
DX: E78.5 Hyperlipidemia, unspecified (principal); Z12.5 Encounter for screening for malignant neoplasm of prostate
CPT/HCPCS: 80061; 84153

== ENCOUNTER → 2022-08-19 01:58 | Outpatient (CLI) | payer MEDICARE, OTHER, SELFPAY ==
--- NOTE | 2022-08-19 | DI.US_ITS ---
Exam(s) US SOFT TISS ABD WALL/LOW BACK EXAM: US SOFT TISS ABD WALL/LOW BACK CLINICAL HISTORY: MASS OF LEFT UPPER BACK R22.2. TECHNIQUE: Ultrasound was performed using standard protocol. COMPARISON: CT CT CHEST LUNG CANCER SCREEN from 08/19/2022 FINDINGS: Ultrasound exam of the area of clinical concern was performed. Submitted images reveal a 3.6 x 0.6 x 1.4 cm mass which is probably a lipoma or conglomeration of lym ph nodes. Also reviewed chest CT images from today's LDCT in these do not reveal an a significant focal finding in tissues over the back at this area. IMPRESSION: As above. Recommend repeat ultrasound examination in 3 months to ensure stability of this finding. DATA REPOSITORY:
--- NOTE | 2022-08-19 11:50 | DI.CTLCSR_ITS ---
Exam(s) CT CHEST LUNG CANCER SCREEN EXAM: CT CHEST LUNG CANCER SCREEN CLINICAL HISTORY: SMOKER F17.210, SCREENING FOR LUNG CANCER, COPD J44.9. TECHNIQUE: Imaging Protocol: Low Dose Technique CONTRAST MATERIAL: None COMPARISON: CT CT CHEST LUNG CANCER SCREEN from 08/19/2021 FINDINGS: CHEST: LUNGS: There is stable appearance of the partially calcified scarring in the left upper lobe and calc ified granulomas.. No new infiltrates. Previously described increased markings in the posterior bas al segment of the left lower lobe are no longer seen. There are no new significant focal right lung findings. No pleural effusions. MEDIASTINUM: There is no obvious hilar nor mediastinal adenopathy. CARDIAC: Heart size is normal. There is no pericardial effusion.Caliber of the thoracic aorta is wit hin normal limits. OTHER: No adrenal masses. OSSEOUS: No significant osseous lesions.No fractures.. IMPRESSION: 1. Stable appearance of left upper lobe partially calcified scarring. Improvement of previously desc ribed left lower lobe findings. 2. No new focal lung findings, pleural effusions, nor obvious intrathoracic adenopathy. 3. Lung RADS Cat 2 - Benign Appearance / Behavior: Nodules with a very low likelihood of becoming a c linically active cancer due to size or lack of growth Lung-RADS 1.0 CATEGORIES: Category 0 - Prior chest CT exam(s) being located for comparison. Category 1 - Annual screening in 12 months. No nodules or definitely benign nodules. Category 2 - Annual screening in 12 months. Benign appearance. Nodules with low likelihood of becomin g active cancer. Category 3 - 6-month follow-up. Probably benign. Short-term follow-up suggested. Nodules with low lik elihood of becoming active cancer. Category 4A - 3-month follow-up and CT/PET if >8 mm in size. Suspicious finding. Findings which requi re additional testing. Category 4B - Findings which require additional testing and tissue sampling. Category 4X - Category 3 or 4 nodules with additional features or imaging findings that increases the suspicion of malignancy. Modifier S- Potentially clinically significant findings (non lung cancer) RADIATION DOSE DELIVERED: 86.66mGy.cm Total DLP DATA REPOSITORY: All CT scans at this facility are submitted to the National Radiology Data Registry (NRDR) Dose Index Registry (DIR) with the [employer] (ACR). RADIATION OPTIMIZATION: All CT scans at this facility use at least one of these dose optimization te chniques: automated exposure control; mA and/or kV adjustment per patient size (includes targeted exa ms where dose is matched to clinical indication); or iterative reconstruction.
== END ==
PROVIDERS: Visit Provider Nurse Practitioner Family
DX: F17.210 Nicotine dependence, cigarettes, uncomplicated (principal); Z12.2 Encounter for screening for malignant neoplasm of respiratory organs; J98.4 Other disorders of lung; R22.2 Localized swelling, mass and lump, trunk
CPT/HCPCS: 71271; 76705

== ENCOUNTER 2022-11-26 11:26 | Outpatient (REF) | payer MEDICARE, OTHER, SELFPAY ==
[2022-11-27 19:23] LABS: PSA, Screening 3.9 ng/mL (<=6.5)
== END 2022-11-26 11:27 | disposition home or self-care (01) ==
LOC: NCHCN 11:26
PROVIDERS: Visit Provider Nurse Practitioner Family
DX: R97.20 Elevated prostate specific antigen [PSA] (principal); Z12.5 Encounter for screening for malignant neoplasm of prostate
CPT/HCPCS: 84153

== ENCOUNTER → 2023-05-13 02:08 | Outpatient (CLI) | payer MEDICARE, SELFPAY ==
--- NOTE | 2023-05-13 | DI.CT_ITS ---
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 TECHNIQUE: Imaging Protocol: Axial computed tomography images with coronal and sagittal reformatted images were created and reviewed CONTRAST MATERIAL: Intravenous: Omnipaque 350 Contrast volume:100 ml contrast COMPARISON: CT CT HEAD WO from 04/05/[address] CHEST LUNG CANCER SCREEN from 09/20/2019 FINDINGS: Parotids: Multiple bilateral homogeneously enhancing nodules within both parotid glands. Largest nod ule on the right, at the upper aspect of the parotid measures 18 millimeters. The 2 larger nodules o n the left upper parotid measure in both 17 millimeters in size. Other smaller nodule is seen more i nferiorly. No nodules are seen in the deep parotid space. Submandibular/thyroid gland: Normal. Lymphadenopathy: There are scattered lymph nodes seen along the level one to level three all measuri ng less than 8 mm in short axis diameter which are physiologic in nature. Carotids/Jugular: No significant stenosis or dissection.. Soft tissues: The floor the mouth is unremarkable. The epiglottis and vocal cords are within normal limits. Lungs: Emphysematous changes. Apical scarring. Calcified left upper lobe nodules. Bones: Mild degenerative changes of the cervical spine. Visualized portions of the brain and orbits: Unremarkable. Sinuses and mastoids: Prior bilateral sinus surgery. Severe sinus opacification with near complete o pacification of both maxillary sinuses as well as the majority of the ethmoid sinuses and the right s phenoid sinus. Frontal sinuses are opacified. Normal soft tissue also seen in the nasal cavity exte nding from the sinuses. No bony destruction. IMPRESSION: Multiple bilateral homogeneous parotid masses which may represent Warthin's tumors given that they ar e commonly bilateral. Benign mixed tumor could also be considered. RADIATION DOSE DELIVERED: 522.55mGy.cm Total DLP DATA REPOSITORY: All CT scans at this facility are submitted to the National Radiology Data Registry (NRDR) Dose Index Registry (DIR) with the [employer] (ACR). RADIATION OPTIMIZATION: All CT scans at this facility use at least one of these dose optimization te chniques: automated exposure control; mA and/or kV adjustment per patient size (includes targeted exa ms where dose is matched to clinical indication); or iterative reconstruction.
[2023-05-13 12:13] LABS: Estimated GFR 80.97 (mL/min/1.73m2)
[2023-05-13] MEDS: Omnipaque 350 MG/ML 100 ML BTL IJ (13:14)
[2023-05-13] MEDS: Normal Saline - Diluent 50 ML VIAL IJ (13:16)
== END ==
PROVIDERS: PCP Nurse Practitioner Family; Visit Provider Nurse Practitioner Family
DX: K11.8 Other diseases of salivary glands (principal)
CPT/HCPCS: 70491; 82565; J3490

== ENCOUNTER 2023-08-20 13:59 | Outpatient (REF) | payer MEDICARE, SELFPAY ==
[2023-08-20 18:27] LABS: Abs Immature Grans 0.01 10^3/uL (0.0-0.06); Absolute Basophil Count 0.05 10^3/uL (0.0-0.2); Absolute Eosinophil Count 0.34 10^3/uL (0.0-0.7); Absolute Monocyte Count 0.41 10^3/uL (0.1-0.8); Absolute Neutrophil Count 2.59 10^3/uL (1.2-6.7); Basophils % 0.8; Eosinophils % 5.3; HCT 47.6 % (40.0-50.0); HGB 16.1 g/dL (13.5-17.5); Immature Grans % 0.2; Lymphocytes % 46.9; MCHC 33.8 % (32.0-36.0); MCV 92 fL (80-95); MPV 10.8 fL (8.0-11.0); Monocytes % 6.4; Neutrophils % 40.4; Platelet Count 222 10^3/uL (130-400); RBC 5.19 10^6/uL (4.36-5.78); RDW 13.4 % (11.8-14.1); RDW-SD 45.5 fL
[2023-08-20 18:54] LABS: ALT 31 U/L (16-63); AST 19 U/L (15-37); Albumin 3.8 g/dL (3.4-5.0); Alkaline Phosphatase 69 U/L (46-116); Anion Gap 6.7 mmol/L (3-11); BUN 18 mg/dL (7-18); Bilirubin, Total 0.3 mg/dL (0.2-1.0); CO2 30.3 mmol/L (21.0-32.0); CREATININE 1.1 mg/dL (0.70-1.30); Calcium 9.2 mg/dL (8.5-10.1); Chloride 104 mmol/L (98-107); Estimated GFR 71.77 (mL/min/1.73m2); FREE T4 0.93 ng/dL (0.76-1.46); Glucose 159 mg/dL (74-106); Potassium 3.2 mmol/L (3.5-5.1); Sodium 141 mmol/L (136-145); TSH 0.91 uIU/mL (0.36-3.74); Total Protein 7.1 g/dL (6.4-8.2)
== END 2023-08-20 14:00 | disposition home or self-care (01) ==
LOC: NCHCN 13:59
PROVIDERS: PCP Nurse Practitioner Family; Visit Provider Nurse Practitioner Family
DX: R63.4 Abnormal weight loss (principal); I10 Essential (primary) hypertension
CPT/HCPCS: 80053; 84439; 84443; 85025

== ENCOUNTER → 2023-09-21 02:16 | Outpatient (CLI) | payer MEDICARE, SELFPAY ==
--- NOTE | 2023-09-21 | DI.CTLCSR_ITS ---
Exam(s) CT CHEST LUNG CANCER SCREEN EXAM: CT CHEST LUNG CANCER SCREEN CLINICAL HISTORY: NICOTINE DEPENDENCE F17.210 SCREENING FOR LUNG CANCER TECHNIQUE: Imaging Protocol: Axial computed tomography images with coronal and sagittal reformatted images were created and reviewed COMPARISON: CT CT CHEST LUNG CANCER SCREEN from 08/19/[address] CHEST LUNG CANCER SCREEN from 08/19/2022 FINDINGS: Tracheobronchial tree: Patent where visualized. Pulmonary parenchyma: No focal consolidation. Centrilobular emphysematous changes are present. Ther e is stable scarring in the left upper lobe. There are calcified granuloma present. Lung Nodules: There is a stable 3 mm noncalcified pulmonary nodule in the medial aspect of the left l ower lobe (series 3, image 396). Mediastinum and Elena: No dominant adenopathy or fluid collection. The esophagus is unremarkable. Thyroid gland: Unremarkable. Lymph nodes: Unremarkable. Pleura: No effusion or pneumothorax. Heart: The heart is not dilated. Coronary artery calcification is present. No pericardial effusion. Aorta: Thoracic aorta non-dilated.Atherosclerosis. Upper abdomen: Unremarkable. Soft Tissues: Unremarkable. Bones: Within normal limits. IMPRESSION: Stable noncalcified left lower lobe pulmonary nodule. Lung RADS Cat 2 - Benign Appearance / Behavior: Nodules with a very low likelihood of becoming a clin ically active cancer due to size or lack of growth Lung-RADS 1.0 CATEGORIES: Category 0 - Prior chest CT exam(s) being located for comparison. Category 1 - Annual screening in 12 months. No nodules or definitely benign nodules. Category 2 - Annual screening in 12 months. Benign appearance. Nodules with low likelihood of becomin g active cancer. Category 3 - 6-month follow-up. Probably benign. Short-term follow-up suggested. Nodules with low lik elihood of becoming active cancer. Category 4A - 3-month follow-up and CT/PET if >8 mm in size. Suspicious finding. Findings which requi re additional testing. Category 4B - Findings which require additional testing and tissue sampling. Suspicious finding. Category 4X - Category 3 or 4 nodules with additional features or imaging findings that increases the suspicion of malignancy. Modifier S- Potentially clinically significant finding. (Non lung cancer) RADIATION DOSE DELIVERED: 78.15mGy.cm Total DLP 78.15mGy.cmTotal DLP DATA REPOSITORY: All CT scans at this facility are submitted to the National Radiology Data Registry (NRDR) Dose Index Registry (DIR) with the [employer] (ACR). RADIATION OPTIMIZATION: All CT scans at this facility use at least one of these dose optimization te chniques: automated exposure control; mA and/or kV adjustment per patient size (includes targeted exa ms where dose is matched to clinical indication); or iterative reconstruction.
== END ==
PROVIDERS: PCP Nurse Practitioner Family; Visit Provider Nurse Practitioner Family
DX: F17.210 Nicotine dependence, cigarettes, uncomplicated (principal); Z12.2 Encounter for screening for malignant neoplasm of respiratory organs; R91.1 Solitary pulmonary nodule
CPT/HCPCS: 71271

== ENCOUNTER 2024-02-23 15:04 | Outpatient (REF) | payer MEDICARE, SELFPAY ==
[2024-02-23 22:46] LABS: Anion Gap 8.4 mmol/L (3-11); BUN 20 mg/dL (7-18); CO2 29.6 mmol/L (21.0-32.0); Calcium 9.8 mg/dL (8.5-10.1); Chloride 102 mmol/L (98-107); Estimated GFR 80.47 (mL/min/1.73m2); Glucose 86 mg/dL (74-106); Potassium 3.8 mmol/L (3.5-5.1); Sodium 140 mmol/L (136-145)
== END 2024-02-23 15:05 | disposition home or self-care (01) ==
LOC: NCHCN 15:04
PROVIDERS: PCP Nurse Practitioner Family; Visit Provider Nurse Practitioner Family
DX: I10 Essential (primary) hypertension (principal)
CPT/HCPCS: 80048

== ENCOUNTER 2024-05-04 18:17 | Outpatient (REF) | payer MEDICARE, SELFPAY ==
[2024-05-04 19:11] LABS: Anion Gap 9.2 mmol/L (3-11); BUN 18 mg/dL (7-18); CO2 27.8 mmol/L (21.0-32.0); CREATININE 1.1 mg/dL (0.70-1.30); Calcium 9.4 mg/dL (8.5-10.1); Chloride 102 mmol/L (98-107); Estimated GFR 71.77 (mL/min/1.73m2); Glucose 103 mg/dL (74-106); Potassium 3.5 mmol/L (3.5-5.1); Sodium 139 mmol/L (136-145)
== END 2024-05-04 18:18 | disposition home or self-care (01) ==
LOC: NCHCN 18:17
PROVIDERS: PCP Nurse Practitioner Family; Visit Provider Nurse Practitioner Family
DX: I10 Essential (primary) hypertension (principal)
CPT/HCPCS: 80048

== ENCOUNTER 2024-05-31 19:33 | Emergency (ER) | payer MEDICARE, MEDICAID, SELFPAY ==
[2024-05-31 19:35] VITALS: BP 137/75; PULSE 100; RESP 20; TEMP 36.1; O2SAT 98
--- NOTE | 2024-05-31 19:51 | ED.GENADUL_ITS ---
Discharge Plan Disposition Patient Disposition: Home Condition: Stable Discharge Details Clinical Impression: Allergic reaction Primary Care Provider: Marita Frazier ED Provider: Kala Renee Home Meds and New Rx's Prescriptions: New prednisone 20 mg tablet 60 mg PO DAILY 5 Days Qty: 15 0RF famotidine [Pepcid] 20 mg tablet 20 mg PO BID PRN (Reason: Allergic reaction) 4 Days Qty: 8 0RF Rx Instructions: Take 1 tablet by mouth twice daily as needed for hives and itching No Action hydrochlorothiazide 50 mg tablet 50 mg PO DAILY simvastatin [Zocor] 20 mg tablet 20 mg PO QHS lisinopril 20 mg tablet 20 mg PO DAILY aspirin [Aspir-81] 81 mg Tablet,Delayed Release (Dr/Ec) 81 mg PO DAILY Discharge Instructions Instructions: Allergic Reaction ED Additional Instructions: Please continue to take Benadryl 1 or 2 tablets every 6-8 hours as needed for rash and itching. Take the prednisone 3 tablets daily for the next 5 days. Please take Pepcid or famotidine once twice daily for the next 4 days as needed for hives and itching. Follow up with primary care provider in 3-5 days. Return to ED sooner if any worsening rash, fever, problems breathing, wheezing or concerns. Referrals: Marita Frazier [Primary Care Provider] - 3 days HPI General Mode of arrival: ambulatory . Date/Time Provider Initiated Documentation: 05/31/24 19:43 . Limitations to Documentation: no limitations and language barrier (Speaks Cantonese) . Information obtained by: patient, family, RN notes reviewed and old records reviewed . HPI Narrative: 73-year-old male presents to the ER with a chief complaint of allover pruritic rash, positive for urticaria and hives. Denies any problems breathing no wheezing no shortness of breath. Began yesterday. Has not taken any medications prior to arrival. Does have a past medical history of hypertension and high cholesterol. COPD,. He does have generalized rash to his upper arms chest back and lower extremities. Related Data Home Medications ?Medication ?Instructions ?Recorded ?Confirmed hydrochlorothiazide 50 mg tablet 50 mg PO DAILY 02/22/19 05/31/24 lisinopril 20 mg tablet 20 mg PO DAILY 02/22/19 05/31/24 simvastatin 20 mg tablet (Zocor) 20 mg PO QHS 02/22/19 05/31/24 aspirin 81 mg tablet,delayed 81 mg PO DAILY 04/01/19 05/31/24 release (Aspir-) famotidine 20 mg tablet (Pepcid) 20 mg PO BID PRN Allergic reaction 05/31/24 4 days #8 tabs prednisone 20 mg tablet 60 mg (3 x 20 mg) PO DAILY 5 days 05/31/24 #15 tabs Previous Rx's ?Medication ?Instructions ?Recorded famotidine 20 mg tablet (Pepcid) 20 mg PO BID PRN Allergic reaction 05/31/24 4 days #8 tabs prednisone 20 mg tablet 60 mg (3 x 20 mg) PO DAILY 5 days 05/31/24 #15 tabs Allergies Allergy/AdvReac Type Severity Reaction Status Date / Time No Known Allergies Allergy Verified 05/31/24 20:27 General Stated Complaint: RashLesion RAÚL: 3 Review of Systems All systems reviewed & are unremarkable except as noted in HPI and below Integumentary/Breasts Skin/Breast: Reports as per HPI, Reports pruritus and Reports rash Exam Narrative Exam Narrative: Constitutional: Alert and oriented x3. Appears stated age. Normal body habitus. Head: Normocephalic, no trauma. Eyes: Pupils PERRL, Red reflex noted, EOM's intact. Eyelids symmetrical without lesions, discharge, or swelling. ENT: Bilateral TM's WNL, External ear normal to inspection, no mastoid TTP, swelling, or erythema, Nasal turbinates WNL, no nasal discharge. Normal dentition, Posterior pharynx WNL, no exudate. Chest: RRR, Normal S1, S2, distal pulses intact. Resp: Lungs clear to auscultation bilaterally, no wheezes, rales, or rhonchi. Abdomen: Soft, non-distended, Normoactive bowel sounds all 4 quads. Musculoskeletal: Normal gait, Moves all 4 extremities without difficulty. Skin: Generalized hives urticaria noted on arms torso back and legs capillary refill less than 2 sec. Neurologic: Cranial nerves II-XII intact. Alert and oriented x 3. Motor: No deficits noted. Sensory: Intact bilaterally all 4 extremities. Hematologic/Lymphatic: No ecchymosis, no lymphadenopathy. Skin General skin exam: elasticity normal Rashes: rashes noted urticaria diffuse full body Trauma: no lacerations or abrasions Course Vital Signs Vital signs: Vital Signs Temperature 36.1 C L 05/31/24 19:35 Pulse 100 H 05/31/24 19:35 Respiratory Rate 20 05/31/24 19:35 Blood Pressure 137/75 05/31/24 19:35 Pulse Oximetry 98 05/31/24 19:35 Temperature 36.1 C L 05/31/24 19:35 Pulse 100 H 05/31/24 19:35 Respiratory Rate 20 05/31/24 19:35 Respiratory Effort Normal 05/31/24 19:39 Blood Pressure 137/75 05/31/24 19:35 Blood Pressure Position Sitting 05/31/24 19:35 Pulse Oximetry 98 05/31/24 19:35 Oxygen Delivery Method Room Air 05/31/24 19:35 Oxygen Flow Rate 0 05/31/24 19:35 Medical Decision Making 73-year-old male presents to the ER with a chief complaint of allover pruritic rash, positive for urticaria and hives. Denies any problems breathing no wheezing no shortness of breath. Began yesterday. Has not taken any medications prior to arrival. Does have a past medical history of hypertension and high cholesterol. COPD,. He does have generalized rash to his upper arms chest back and lower extremities. PO Prednisone 60 mg, Benadryl 25 mg, and Pepcid 40mg PO ordered. Will re-eval. Rashes improved on reevaluation, patient to be discharged with prescription for Pepcid and prednisone and instructed to take 1 or 2 Benadryl tablets every 4 to 6 to 8 hours as needed for hives and return itching. Instructed to follow-up with PCP. Return to the ER for any worsening or concerns. This text was generated using [employer] system, please disregard any oddities of phrase or misspellings. Quality:SDOH Health Related Social Needs: No Data to Display PFSH All Active Problems (Updated 05/31/24 @ 20:36 by Kala Renee NP) Allergic reaction (Acute) Tubular adenoma of colon (Acute) Hyperplastic colon polyp (Acute) Medical History Nasal polyp Acne Prediabetes Colorectal polyps Deviated septum Atopic dermatitis Warthin's tumor COPD (chronic obstructive pulmonary disease) pt. and spouse deny Hyperlipidemia Microscopic hematuria pt. and spouse deny Hypertension Tobacco abuse Abnormal EKG pt. and spouse deny Surgical History S/P colonoscopy (~04/05/19) Social History Smoking/Tobacco Use Status: Current every day Tobacco Type: cigarettes Smoking risk assessment performed?: Yes Alcohol Intake: current Alcohol Intake frequency: holidays/special occasions only Drug use: Never Substance use type: does not use
[2024-05-31] MEDS: diphenhydrAMINE 25 MG CAP PO (20:18)
[2024-05-31] MEDS: Famotidine 20 MG TAB 40 MG PO (20:18)
[2024-05-31] MEDS: predniSONE 20 MG TAB 60 MG PO (20:18)
[2024-05-31 21:15] VITALS: BP 123/85; PULSE 72; RESP 14; O2SAT 98
== END 2024-05-31 21:51 | disposition home or self-care (01) ==
LOC: ER 21:07
PROVIDERS: Emergency Provider Registered Nurse Emergency; PCP Nurse Practitioner Family
DX: L50.0 Allergic urticaria (principal)
CPT/HCPCS: 99283; J7512

== ENCOUNTER → 2024-07-07 10:26 | Outpatient (BNVA) | payer MEDICARE, MEDICAID, SELFPAY | PROVIDERS: PCP Nurse Practitioner Family; Referring Provider Nurse Practitioner Family; Visit Provider Physical Therapy Assistant | DX: Z12.11 Encounter for screening for malignant neoplasm of colon (principal); Z86.0100 Personal history of colon polyps, unspecified; I10 Essential (primary) hypertension; J44.9 Chronic obstructive pulmonary disease, unspecified ==

== ENCOUNTER 2024-07-13 13:22 | Outpatient (CLI) | payer MEDICARE, MEDICAID, SELFPAY ==
--- NOTE | 2024-07-13 | DI.RAD_ITS ---
Exam(s) XR SHOULDER RT COMPLETE 2+V EXAM: XR SHOULDER RT COMPLETE 2+V CLINICAL HISTORY: RT SHOULDER PAIN, M25.511. TECHNIQUE: 2D digital imaging was performed. COMPARISON: No exams were available for comparison FINDINGS: Five view is No evidence of acute fracture or dislocation and there are no obvious degenerative changes glenohumer al joint. Subacromial space is not diminished. However, there is a 5 x 3 mm calcification in the so ft tissues just above the greater tuberosity consistent with calcific rotator cuff tendinitis. There are no obvious degenerative changes in the AC joint. Clavicle is intact. IMPRESSION: Calcific rotator cuff tendinitis as described above. DATA REPOSITORY: RADIATION DOSE DELIVERED:
--- NOTE | 2024-07-13 | DI.RAD_ITS ---
Exam(s) XR ELBOW RT COMPLETE EXAM: XR ELBOW RT COMPLETE CLINICAL HISTORY: RT ELBOW PAIN, M25.521. TECHNIQUE: 2D digital imaging was performed. COMPARISON: No exams were available for comparison FINDINGS: 3 views No evidence of obvious acute fracture, but there is elevation of the anterior fat consistent with linda nt effusion-possible hemarthrosis. Also some swelling posteriorly. Radial head and neck appear inta ct. There is a tiny sub mm calcific density seen off the medial aspect of the coronary process of th e proximal ulna. There are also bony excrescences at the level of both distal medial and lateral hum eral epicondyles, possibly consistent with bilateral epicondylitis. IMPRESSION: Joint effusion versus is possible hemarthrosis if there has been trauma there are no obvious radial h ead-neck fracture evident on these images. Other significant findings as above. DATA REPOSITORY: RADIATION DOSE DELIVERED:
== END 2024-07-13 13:42 ==
LOC: DI 13:26
PROVIDERS: PCP Nurse Practitioner Family; Visit Provider Nurse Practitioner Family
DX: M75.31 Calcific tendinitis of right shoulder (principal)
CPT/HCPCS: 73030; 73080

== ENCOUNTER 2024-07-13 13:29 | Outpatient (REF) | payer MEDICARE, MEDICAID, SELFPAY ==
[2024-07-13 18:48] LABS: Abs Immature Grans 0.02 10^3/uL (0.0-0.06); Absolute Basophil Count 0.05 10^3/uL (0.0-0.2); Absolute Eosinophil Count 0.14 10^3/uL (0.0-0.7); Absolute Lymphocyte Count 2.64 10^3/uL (1.2-3.4); Absolute Monocyte Count 1.04 10^3/uL (0.1-0.8); Absolute Neutrophil Count 6.03 10^3/uL (1.2-6.7); Basophils % 0.5 %; Eosinophils % 1.4 %; HCT 49.8 % (40.0-50.0); HGB 17.1 g/dL (13.5-17.5); Immature Grans % 0.2 %; Lymphocytes % 26.6 %; MCH 32.3 pg (27.0-33.0); MCHC 34.3 % (32.0-36.0); MCV 94 fL (80-95); MPV 11.2 fL (8.0-11.0); Monocytes % 10.5 %; Neutrophils % 60.8 %; Platelet Count 218 10^3/uL (130-400); RDW 14.2 % (11.8-14.1); RDW-SD 48.8 fL; WBC 9.92 10^3/uL (4.4-10.8)
[2024-07-13 18:53] LABS: Uric Acid 7.4 mg/dL (3.5-7.2)
== END 2024-07-13 13:30 | disposition home or self-care (01) ==
LOC: NCHCN 13:29
PROVIDERS: PCP Nurse Practitioner Family; Visit Provider Nurse Practitioner Family
DX: M25.429 Effusion, unspecified elbow (principal); L53.9 Erythematous condition, unspecified
CPT/HCPCS: 84550; 85025

== ENCOUNTER 2024-08-05 06:10 | Day surgery (SDC) | payer MEDICARE, MEDICAID, SELFPAY ==
--- NOTE | 2024-08-04 14:39 | W.PM.DSUDISC ---
Date of service: 08/05/24 Discharge Plan Disposition Patient Disposition: Home Condition: Good Discharge Details Reason For Visit: screening colonoscopy Attending Provider: Duke Granda Primary Care Provider: Marita Frazier Home Meds and New Rx's Prescriptions: Continued hydrochlorothiazide 50 mg tablet 50 mg PO DAILY simvastatin [Zocor] 20 mg tablet 20 mg PO QHS lisinopril 20 mg tablet 20 mg PO DAILY aspirin [Aspir-81] 81 mg Tablet,Delayed Release (Dr/Ec) 81 mg PO DAILY Discontinued bisacodyl [Dulcolax (bisacodyl)] 5 mg tablet,delayed release (DR/EC) 5 mg PO ONCE Qty: 4 0RF Rx Instructions: Take per colonoscopy instructions provided by ordering providers office polyethylene glycol 3350 17 gram/dose powder 17 g PO ONCE Qty: 238 0RF Rx Instructions: Take per colonoscopy instructions provided by ordering providers office Discharge Instructions Instructions: Colon polyps Additional Instructions: Mr. Mendoza, it was very nice meeting you and your son today, and I hope you are comfortable during the procedure and that you make a quick recovery from the colonoscopy itself. You have innumerable polyps within the length of your colon. I removed the ones that appear suspicious to me, and these will all be sent off for testing. Polyps, and a number of different varieties, and they tend to range from completely benign to significant risk factors for colon cancer. The type that you had removed previously, were mostly benign, although some of them were of moderate risk for colon cancer. If you need anything or have any questions at all, please do not hesitate to call 1. If tolerated, consume a soft, low fiber diet for 1-2 days. [address] Do not drive, drink alcohol, operate machinery, make critical decisions, or do activities that require coordination or balance for 24 hours. 3. Because air was put into your colon during the procedure, expelling air from your rectum (passing gas or farting) is normal. 4. You may not have a bowel movement for 1-3 days because of the colonoscopy prep. This is normal. 5. Go directly to the emergency room if you notice any of the following: Develop chills (warm to touch), or if you have a thermometer and your temperature is above 101 Difficulty breathing or difficultly swallowing Persistent vomiting Severe abdominal pain, other than gas cramps Severe chest pain Black, tarry stools Any bleeding ? exceeding one tablespoon 6. Call your physician if the site where your intravenous was started becomes red, swollen, painful, and warm to touch. 7. Your physician has reviewed your pre-procedure medications. Please continue to take those medications as previously ordered. You will be given specific information/education regarding any changes to your medications before leaving. Activity:: Activity as Tolerated Diet:: As Tolerated Discharge Orders Discharge Orders: Discharge Order (Routine); Ordered 08/04/24 Ordered By: Duke Granda DS: Diagnosis Discharge Diagnosis (1) Encounter for screening colonoscopy: Status: Acute Asessment and Plan: Follow-up on polypectomy results
--- NOTE | 2024-08-04 14:40 | W.COLOREPORT ---
Date of service: 08/05/24 Time of Service: 08:12 Colonoscopy Report Date of procedure: 08/05/24 Pre-op diagnosis general: screening colonoscopy Post-op diagnosis procedure note: other (Colon polyps) Procedure: colonoscopy with polypectomy Surgeon: Duke Granda Anesthesia Type: General:No Airway Estimated blood loss (mL): 10 Pathology: other (0.25 cm flat polyps from 90 cm, 75 cm, 60 (x 3), 35, 30, and 20 cm) Complications: None Disposition: same day Indications: Angel is a 74 year old man with a history of adenomatous polyps who needs his next screening colonscopy Prep: Miralax/Dulcolax Procedure Start Time: 07:33 Procedure End Time: 08:01 Retraction Time: 23 Findings: Innumerable colon polyps most heavily concentrated towards the left side; majority of these are hyperplastic appearing, but polypectomy was performed at polyps from 90 cm, 75 cm, 60 (x 3), 35, 30, and 20 cm Procedure Description: After the induction of anesthesia, and with the patient in left lateral decubitus position, I began by performing an external anorectal exam.? Perineum and skin were normal, as was the anal verge.? There was no evidence of external hemorrhoids.? Next, I performed a digital rectal exam.? I did not appreciate any abnormal findings.? Next, I advanced a colonoscope into the rectal vault.? I performed retroflexion.? This appeared normal.? Using insufflation, I then advanced the colonoscope beyond the rectal folds and into the sigmoid colon before advancing towards the cecum.? There are innumerable polyps along the length of the colon. All of these are less than 0.25 cm in size. Narrowband imaging was used to assist with the analysis the scope was noted to be in the cecum by identification of the ileocecal valve and appendiceal orifice.? I then began withdrawing the colonoscope using repeated irrigation as necessary for full evaluation of the colonic mucosa. I performed cold forcep polypectomy 90 cm, 75 cm, 60 (x 3), 35, 30, and 20 cm from the anal verge. All of these polyps were flat. Again, majority of them appeared hyperplastic, but if you did have features of adenomatous polyps. Finally, the scope was withdrawn and the patient was brought to the same-day surgery recovery unit as the anesthetic wore off. ?The findings and instructions were shared with the patient prior to discharge. [place] Bowel Prep [place] Bowel Prep Right Colon: 3 Left Colon: 3 Transverse Colon: 3 Total Score: 9
[2024-08-05 06:24] VITALS: BP 147/78; PULSE 75; RESP 16; TEMP 36.3; O2SAT 97
[2024-08-05] MEDS: Normal Saline Flush 10 ML SYR IV (06:40)
[2024-08-05 07:25] VITALS: BMI 22.6
--- NOTE | 2024-08-05 07:25 | W.ANESPRE ---
General Info Date of Service Date Performed: 08/05/24 Height: 5 ft 10 in Weight: 71.6 kg Body Mass Index (BMI): 22.6 Surgical Procedure: Operation Date: 08/05/24 07:35 Proposed Procedure Side Surgeon p Colonoscopy Duke Granda MD Meds Allergies and Home Medications Allergies Allergy/AdvReac Type Severity Reaction Status Date / Time No Known Allergies Allergy Verified 08/05/24 06:31 Home Medication ?Medication ?Instructions ?Recorded hydrochlorothiazide 50 mg tablet 50 mg PO DAILY 02/22/19 lisinopril 20 mg tablet 20 mg PO DAILY 02/22/19 simvastatin 20 mg tablet (Zocor) 20 mg PO QHS 02/22/19 aspirin 81 mg tablet,delayed 81 mg PO DAILY 04/01/19 release (Aspir-) Current Visit Medications: Current Medications Generic Name Dose Route Start Last Admin Trade Name Freq PRN Reason Stop Dose Admin IV Miscellaneous Supplies 1 each 08/05/24 06:00 Iv Access IV 08/05/24 23:59 DIRECTED TOYIN Ondansetron HCl 4 mg 08/04/24 14:41 Ondansetron 4 Mg/2 Ml Vial IVP 09/03/24 14:40 Q4H PRN PRN Nausea / Vomiting Sodium Chloride 0 ml 08/05/24 06:00 08/05/24 06:40 Normal Saline Flush 10 Ml Syr IV 08/05/24 23:59 10 ml PRN PRN Administration Sodium Chloride 0 ml 08/05/24 06:00 Normal Saline 10 Ml Vial IJ 08/05/24 23:59 DIRECTED PRN Sterile Water 0 ml 08/05/24 06:00 Water,Injection,Sterile 10 Ml Vial IJ 08/05/24 23:59 DIRECTED PRN PFSH Active Problems Active Problems: Problem Status Onset Code Tubular adenoma of colon Acute D12.6 Hyperplastic colon polyp Acute K63.5 Medical History Medical History Nasal polyp Acne Prediabetes Colorectal polyps Deviated septum Atopic dermatitis Warthin's tumor COPD (chronic obstructive pulmonary disease) pt. and spouse deny Hyperlipidemia Microscopic hematuria pt. and spouse deny Hypertension Tobacco abuse Abnormal EKG pt. and spouse deny Surgical History Surgical History History of nasal septoplasty S/P colonoscopy (~04/05/19) Tobacco Smoking/Tobacco Use Status: Current every day Tobacco Type: cigarettes Alcohol Alcohol Intake: current Alcohol intake frequency: holidays/special occasions only Substance Use Substance use: Never Substance use type: does not use Details: Nothing today. Vital Signs and Lab Results Vital Signs Most Recent Vital Signs in EMR: Most Recent Vital Signs Temp Pulse Resp BP Pulse Ox 36.3 C L 75 16 147/78 H 97 08/05/24 06:24 08/05/24 06:24 08/05/24 06:24 08/05/24 06:24 08/05/24 06:24 Lab Results Blood Type / Crossmatch: No Data to Display Complete Blood Count: White Blood Count 9.92 10^3/uL (4.4-10.8) 07/13/24 12:50 Red Blood Count 5.30 10^6/uL (4.36-5.78) 07/13/24 12:50 Hemoglobin 17.1 g/dL (13.5-17.5) 07/13/24 12:50 Hematocrit 49.8 % (40.0-50.0) 07/13/24 12:50 Platelet Count 218 10^3/uL (130-400) 07/13/24 12:50 Complete Metabolic Panel: No Data to Display Liver Function Panel: No Data to Display Coagulation Panel: No Data to Display Cardiac Panel: No Data to Display Arterial Blood Gas: No Data to Display Venous Blood Gas: No Data to Display Pancreas Panel: No Data to Display Thyroid Panel: No Data to Display Infectious Disease: No Data to Display Blood Cultures: No Data to Display Toxicology Panel: No Data to Display Anesthesia Assessment and Plan Anesthesia History Personal History: No History of Anesthesia Complications Family History: No Family History of Anesthesia Complications Exercise Tolerance Exercise Tolerance: Metabolic Equivalents>4 Pertinent Negatives Pertinent Negatives: No Symptoms of GERD Cardiac & Pulmonary Exam Cardiac Exam: Normal S1/S2 Heart Sounds Pulmonary Exam: Clear Bilateral Breath Sounds Implantable Cardiac Device Does patient have a Pacemaker or an ICD?: No Airway Exam Known Difficult Airway: No Mallampati Class: 2 Mouth Opening: Normal (> 3cm) Thyromental Distance: Greater than 3 cm Neck Range of Motion: Full ROM Neck Circumference: Normal Teeth Condition: Normal Dentition ASA Classification ASA Score: ASA 2 Emergency Case?: No NPO Status NPO Status: NPO Clears >2 hours, Solids >8 hours Anesthesia Plan Resuscitation Status: Full Code Anesthesia Technique: General Anesthesia Airway Planned: Natural Airway Monitors Used: Standard Monitors
--- NOTE | 2024-08-05 07:42 | BOWEL_PTH ---
PATIENT: Angel Mendoza LOC: [facility] U#:[id number] AGE/SX: 74/M ROOM: RE08/05/[address]: Duke Granda MD : 1950 BED: DIS: 08/05/2024 SPEC #: [id number] RECD: 08/05/24 12:45 STATUS: CHRIS RE #: [id number] SAQIB: 08/05/24 07:[address]: Duke Granda DEPT: Surgical Specimen RECD BY: Shaunna Holt ENTERED: 08/05/24 12:50 SP TYPE: Bowel OTHR DR: Marita Frazier Tissues: 1 - BIOPSY BOWEL 2 - BIOPSY BOWEL 3 - BIOPSY BOWEL 4 - BIOPSY BOWEL 5 - BIOPSY BOWEL 6 - BIOPSY BOWEL Procedures: GROSS AND MICRO LEVEL 4 Comments: [id number]
[2024-08-05 08:06] VITALS: BP 109/74; PULSE 87; RESP 16; TEMP 36.4; O2SAT 93
--- NOTE | 2024-08-05 08:14 | W.ANESPOSTOP ---
Postoperative Evaluation Date, Time and Location Date Performed: 08/05/24 Time Performed: 08:14 Patient Location: Day Surgery Unit Vital Signs Most Recent Imported Vital Signs: Most Recent Vital Signs Temp Pulse Resp BP Pulse Ox 36.4 C L 87 16 109/74 93 08/05/24 08:06 08/05/24 08:06 08/05/24 08:06 08/05/24 08:06 08/05/24 08:06 Pain Score Most Recent Pain Score: Most Recent Pain Score Pain Level 0 08/05/24 08:06 Assessment Mental Status: Awake (Alert & Oriented to Patient Baseline) Airway and Respiratory Function: Patent airway with normal (patient baseline) respiratory exam Cardiovascular Function: Hemodynamically Stable Hydration Status: Adequately Hydrated Nausea & Vomiting: No Nausea or Vomiting Pain: Pt. Denies Any Pain Peripheral Nerve Block: Patient did not receive a nerve block
[2024-08-05 08:36] VITALS: BP 152/85; PULSE 70; RESP 18; TEMP 36.5; O2SAT 99
== END 2024-08-05 08:35 | disposition home or self-care (01) ==
LOC: SUR 06:10
PROVIDERS: PCP Nurse Practitioner Family; Visit Provider Surgery
PROC: 0DJD8ZZ Inspection of Lower Intestinal Tract, Via Natural or Artificial Opening Endoscopic (ICD-10-PCS; CPT 45378; principal; 2024-08-05 07:30)
DX: Z12.11 Encounter for screening for malignant neoplasm of colon (principal); K63.5 Polyp of colon
CPT/HCPCS: 45380; 88305; J2704

== ENCOUNTER 2024-12-07 13:33 | Outpatient (REF) | payer MEDICARE, MEDICAID, SELFPAY ==
[2024-12-07 15:25] LABS: Abs Immature Grans 0.02 10^3/uL (0.0-0.06); Absolute Basophil Count 0.06 10^3/uL (0.0-0.2); Absolute Eosinophil Count 0.34 10^3/uL (0.0-0.7); Absolute Lymphocyte Count 3.71 10^3/uL (1.2-3.4); Absolute Monocyte Count 0.59 10^3/uL (0.1-0.8); Absolute Neutrophil Count 2.12 10^3/uL (1.2-6.7); Basophils % 0.9 %; HCT 52.3 % (40.0-50.0); HGB 17.4 g/dL (13.5-17.5); Immature Grans % 0.3 %; Lymphocytes % 54.2 %; MCH 31.5 pg (27.0-33.0); MCHC 33.3 % (32.0-36.0); MCV 95 fL (80-95); MPV 10.5 fL (8.0-11.0); Monocytes % 8.6 %; Platelet Count 232 10^3/uL (130-400); RBC 5.52 10^6/uL (4.36-5.78); RDW 13.8 % (11.8-14.1); RDW-SD 47.9 fL; WBC 6.84 10^3/uL (4.4-10.8)
[2024-12-07 15:45] LABS: Hemoglobin A1C 6.1 % (<5.7)
[2024-12-07 17:41] LABS: Calculated LDL 108 mg/dL (<100); Cholesterol 180 mg/dL (<200); HDL Cholesterol 41 mg/dL (>or=40); Triglyceride 156 mg/dL (<150)
[2024-12-07 22:36] LABS: PSA, Screening 2.6 ng/mL (<=6.5)
== END 2024-12-07 13:34 | disposition home or self-care (01) ==
LOC: NCHCN 13:33
PROVIDERS: PCP Nurse Practitioner Family; Visit Provider Nurse Practitioner Family
DX: E78.5 Hyperlipidemia, unspecified (principal); R73.03 Prediabetes; R22.1 Localized swelling, mass and lump, neck; Z12.5 Encounter for screening for malignant neoplasm of prostate
CPT/HCPCS: 80061; 84153; 83036; 85025

== ENCOUNTER 2025-03-06 19:27 | Outpatient (REF) | payer MEDICARE, MEDICAID, SELFPAY ==
[2025-03-06 22:39] LABS: HCT 47.9 % (40.0-50.0); HGB 16.3 g/dL (13.5-17.5); MCH 31.5 pg (27.0-33.0); MCHC 34.0 % (32.0-36.0); MCV 93 fL (80-95); MPV 10.7 fL (8.0-11.0); Platelet Count 230 10^3/uL (130-400); RBC 5.17 10^6/uL (4.36-5.78); RDW 13.8 % (11.8-14.1); RDW-SD 47.0 fL; WBC 6.76 10^3/uL (4.4-10.8)
[2025-03-06 22:52] LABS: ALT 33 U/L (16-63); AST 19 U/L (15-37); Albumin 4.2 g/dL (3.4-5.0); Alkaline Phosphatase 72 U/L (46-116); Anion Gap 11.2 mmol/L (3-11); BUN 17 mg/dL (7-18); Bilirubin, Total 0.5 mg/dL (0.2-1.0); CO2 27.8 mmol/L (21.0-32.0); Calcium 9.4 mg/dL (8.5-10.1); Chloride 102 mmol/L (98-107); Estimated GFR 94.03 (mL/min/1.73m2); Glucose 81 mg/dL (74-106); Potassium 3.5 mmol/L (3.5-5.1); Sodium 141 mmol/L (136-145); Total Protein 7.6 g/dL (6.4-8.2); Uric Acid 8.1 mg/dL (3.5-7.2)
== END 2025-03-06 19:28 | disposition home or self-care (01) ==
LOC: NCHCN 19:27
PROVIDERS: PCP Nurse Practitioner Family; Visit Provider Family Medicine
DX: M10.9 Gout, unspecified (principal); Z01.818 Encounter for other preprocedural examination
CPT/HCPCS: 80053; 85027; 84550

== ENCOUNTER 2025-03-22 02:58 | Outpatient (CLI) | payer MEDICARE, MEDICAID, SELFPAY ==
--- NOTE | 2025-03-22 | DI.US_ITS ---
Exam(s) US AAA SCREENING EXAM: US AAA SCREENING CLINICAL HISTORY: SCREENING FOR AAA,Z13.6,NICOTINE DEPENDENCE,F17.210 COMPARISON: No exams were available for comparison FINDINGS: Abdominal Aorta: Proximal: 2.4 cm Mid: 2.2 cm Distal: 2.0 cm Iliacs: Right: 1 cm Left: 1 cm IMPRESSION: No evidence of abdominal aortic aneurysm. DATA REPOSITORY:
--- NOTE | 2025-03-22 | DI.CTLCSR_ITS ---
Exam(s) CT CHEST LUNG CANCER SCREEN EXAM: CT CHEST LUNG CANCER SCREEN CLINICAL HISTORY: SMOKER, F17.210,LUNG CANCER SCREENING TECHNIQUE: Imaging Protocol: Axial computed tomography images with coronal and sagittal reformatted images were created and reviewed. Low dose screening protocol. COMPARISON: CT CT CHEST LUNG CANCER SCREEN from 09/21/2023 FINDINGS: Tracheobronchial tree: No bronchiectasis or mucus plugging. Mediastinum and Elena: No dominant adenopathy or fluid collection. Pulmonary parenchyma: No consolidation or dominant measurable mass. Centrilobular emphysematous changes. Left upper lobe scarring. Calcified granulomas in the left upper lobe. Stable 3 millimeter nodule medial left lower lobe. Lung Nodules: None. Pleura: No effusion. No pneumothorax. Heart: The heart is not dilated. Minimal coronary artery calcifications are seen. No pericardial effusion. Aorta: Thoracic aorta non-dilated. Mild atherosclerotic changes. Upper abdomen: Unremarkable. Bones: No compression fractures. Prominent endplate osteophytes. Soft Tissues: Unremarkable. IMPRESSION: No suspicious pulmonary nodules. Lung RADS Cat 2 - Benign Appearance / Behavior: Nodules with a very low likelihood of becoming a clinically active cancer due to size or lack of growth Lung-RADS 1.0 CATEGORIES: Category 0 - Prior chest CT exam(s) being located for comparison. Category 1 - Annual screening in 12 months. No nodules or definitely benign nodules. Category 2 - Annual screening in 12 months. Benign appearance. Nodules with low likelihood of becoming active cancer. Category 3 - 6-month follow-up. Probably benign. Short-term follow-up suggested. Nodules with low likelihood of becoming active cancer. Category 4A - 3-month follow-up and CT/PET if >8 mm in size. Suspicious finding. Findings which require additional testing. Category 4B - Findings which require additional testing and tissue sampling. Category 4X - Category 3 or 4 nodules with additional features or imaging findings that increases the suspicion of malignancy. Modifier S- Potentially clinically significant findings (non lung cancer) RADIATION DOSE DELIVERED: 32.84mGy.cm Total DLP DATA REPOSITORY: All CT scans at this facility are submitted to the National Radiology Data Registry (NRDR) Dose Index Registry (DIR) with the [employer] ([employer]). RADIATION OPTIMIZATION: All CT scans at this facility use at least one of these dose optimization techniques: automated exposure control; mA and/or kV adjustment per patient size (includes targeted exams where dose is matched to clinical indication); or iterative reconstruction.
== END 2025-03-22 03:18 ==
LOC: DI 02:58
PROVIDERS: PCP Nurse Practitioner Family; Visit Provider Family Medicine
DX: Z12.2 Encounter for screening for malignant neoplasm of respiratory organs (principal); F17.210 Nicotine dependence, cigarettes, uncomplicated; Z13.6 Encounter for screening for cardiovascular disorders
CPT/HCPCS: 71271; 76706